=== PATIENT | female | born 1970 | race Caucasian/White ===

== ENCOUNTER 2022-09-14 09:59 | Emergency (ER) | payer SELFPAY ==
[~2022-09-14] VITALS: Ht 152.4 cm; Wt 64.0 kg
[2022-09-14] MEDS ORDERED: ACETAMINOPHEN 325MG TABLET PO ONE (11:00)
[2022-09-14] MEDS ORDERED: AMLODIPINE 10MG TABLET PO ONE (11:00)
[2022-09-14 12:02] LABS: BASOPHILS % 0.6 % (0.0-2.0); EOSINOPHILS % 0.5 % (0.0-5.0); HEMATOCRIT. 39.1 % (36.0-48.0); HEMOGLOBIN. 13.1 g/dL (12.0-16.0); LYMPHOCYTES % 16.2 % (20.0-50.0); MEAN CORPUSCULAR VOLUME 86.7 fL (81.0-99.0); MEAN PLATELET VOLUME 9.5 fl (7.4-10.4); NEUTROPHILS % 71.7 % (40.0-76.0); PLATELET 246 x1000/uL (130-400); RED BLOOD CELL COUNT 4.51 mill/uL (4.2-5.4); RED CELL DISTRIBUTION WIDTH 14.8 % (11.6-14.6)
[2022-09-14] MEDS ORDERED: AMLO10TA80 PO (12:22)
[2022-09-14 12:48] VITALS: BP 136/81
== END 2022-09-14 12:50 | disposition home or self-care (01) ==
LOC: ER 09:59
DX: I10 Essential (primary) hypertension (principal); R51.9 Headache, unspecified; F17.200 Nicotine dependence, unspecified, uncomplicated
CPT/HCPCS: 36415; 70450; 80048; 81025; 85025; 99284; Z7610